=== PATIENT | female | born 1975 | race Hispanic/Latino ===

== ENCOUNTER 2018-09-05 21:35 | Emergency (ER) | payer SELFPAY ==
--- NOTE | 2018-09-05 22:20 | EDPHYS ---
Physician Documentation [facility] Name: Monica Juares Age: 43 yrs Sex: Female : 1975 Arrival Date: 09/05/2018 Time: 21:36 Bed 13 Private MD: ED Physician Derrick Berry HPI: 09/05 22:26 This 43 yrs old Female presents to ER via Ambulatory with complaints of KNOTS gs IN HEAD PAINFUL. 22:26 Description: The affected area is small, confluent. Onset: The symptoms/episode gs began/occurred 3 day(s) ago, and became persistent. Possible cause(s): unknown. Associated signs and symptoms: Pertinent negatives: drainage, erythema, fever, ear pain. Modifying factors: the symptoms are alleviated by nothing, the symptoms are aggravated by nothing. Severity of symptoms: At their worst the symptoms were moderate, in the emergency department the symptoms are unchanged. The patient has not experienced similar symptoms in the past. 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 - Social history:: Smoking status: Patient uses tobacco products, smokes one pack cigarettes per day. - Ebola Screening: : Patient denies travel to an Ebola-affected area in the 21 days before illness onset. ROS: 22:26 All other systems are negative. gs Exam: 22:26 Eyes: Pupils equal round and reactive to light, extra-ocular motions intact. Lids and gs lashes normal. Conjunctiva and sclera are non-icteric and not injected. Cornea within normal limits. Periorbital areas with no swelling, redness, or edema. ENT: Nares patent. No nasal discharge, no septal abnormalities noted. Tympanic membranes are normal and external auditory canals are clear. Oropharynx with no redness, swelling, or masses, exudates, or evidence of obstruction, uvula midline. Mucous membranes moist. Neck: Trachea midline, no thyromegaly or masses palpated, and no cervical lymphadenopathy. Supple, full range of motion without nuchal rigidity, or vertebral point tenderness. No Meningismus. Chest/axilla: Normal chest wall appearance and motion. Nontender with no deformity. No lesions are appreciated. Cardiovascular: Regular rate and rhythm with a normal S1 and S2. No gallops, murmurs, or rubs. Normal PMI, no JVD. No pulse deficits. Respiratory: Lungs have equal breath sounds bilaterally, clear to auscultation and percussion. No rales, rhonchi or wheezes noted. No increased work of breathing, no retractions or nasal flaring. Abdomen/GI: Soft, non-tender, with normal bowel sounds. No distension or tympany. No guarding or rebound. No evidence of tenderness throughout. Back: No spinal tenderness. No costovertebral tenderness. Full range of motion. Skin: Warm, dry with normal turgor. Normal color with no rashes, no lesions, and no evidence of cellulitis. MS/ Extremity: Pulses equal, no cyanosis. Neurovascular intact. Full, normal range of motion. Neuro: Awake and alert, GCS 15, oriented to person, place, time, and situation. Cranial nerves II-XII grossly intact. Motor strength 5/5 in all extremities. Sensory grossly intact. Cerebellar exam normal. Normal gait. 22:26 Constitutional: The patient appears alert, awake, uncomfortable. 22:26 Head/face: Noted is 2 occipital lymph nodes tender no erythema fluctuance or drainage. Vital Signs: 21:49 BP 154 / 90; Pulse 96; Resp 18; Temp 97.5; Pulse Ox 100% on R/A; Weight 57.15 kg (R); aj1 Height 5 ft. 0 in. (152.40 cm) (R); Pain 10/10; 21:49 Body Mass Index 24.61 (57.15 kg, 152.40 cm) aj1 MDM: 22:05 Patient medically screened. 22:26 Data reviewed: vital signs, nurses notes. Counseling: I had a detailed discussion with gs the patient and/or guardian regarding: the historical points, exam findings, and any diagnostic results supporting the discharge/admit diagnosis, the need for outpatient follow up. Administered Medications: 22:10 Drug: Ibuprofen 600 mg Route: PO; ao 22:30 Follow up: Response: No adverse reaction ao 22:30 Not Given (Patient Refused): Verdi 5 mg-325 mg 1 tabs PO once ao Disposition: 09/05/18 22:19 Discharged to Home. Impression: Acute lymphadenitis of face, head and neck. - Condition is Stable. - Discharge Instructions: Lymphadenopathy. - Prescriptions for Ibuprofen 600 mg Oral Tablet - take 1 tablet by ORAL route every 8 hours As needed take with food; 30 tablet. Keflex 500 mg Oral Capsule - take 1 capsule by ORAL route every 12 hours for 7 days; 14 capsule. - Medication Reconciliation Form, Thank You Letter, Antibiotic Education, Prescription Opioid Use form. - Follow up: Private Physician; When: 1 - 2 days; Reason: Re-evaluation by your physician. Signatures: Debibe Reid RN RN aj1 Tin Ojeda RN RN Derrick Smith MD MD gs Corrections: (The following items were deleted from the chart) 22:31 22:19 09/05/2018 22:19 Discharged to Home. Impression: Acute lymphadenitis of face, ao head and neck. Condition is Stable. Forms are Medication Reconciliation Form, Thank You Letter, Antibiotic Education, Prescription Opioid Use. Follow up: Private Physician; When: 1 - 2 days; Reason: Re-evaluation by your physician. gs
--- NOTE | 2018-09-05 22:20 | ER ---
Nurse's Notes [facility] Name: Monica Juares Age: 43 yrs Sex: Female : 1975 Arrival Date: 09/05/2018 Time: 21:36 Bed 13 Private MD: Diagnosis: Acute lymphadenitis of face, head and neck Presentation: 09/05 21:47 Presenting complaint: Patient states: "I got 2 knots on the back of my head, they hurt aj1 really bad." Denies getting hit in the head, denies fever. Transition of care: patient was not received from another setting of care. Onset of symptoms was September 05, 2018. Risk Assessment: Do you want to hurt yourself or someone else? Patient reports no desire to harm self or others. Initial Sepsis Screen: Does the patient meet any 2 criteria? HR > 90 bpm. No. Patient's initial sepsis screen is negative. Does the patient have a suspected source of infection? No. Patient's initial sepsis screen is negative. Care prior to arrival: None. 21:47 Method Of Arrival: Ambulatory aj 21:47 Acuity: [place] 4 aj1 Triage Assessment: 21:49 General: Appears in no apparent distress. uncomfortable, Behavior is calm, cooperative, aj1 appropriate for age. Pain: Complains of pain in scalp Pain currently is 10 out of 10 on a pain scale. Neuro: Level of Consciousness is awake, alert, obeys commands. Cardiovascular: Patient's skin is warm and dry. Respiratory: Airway is patent Respiratory effort is even, unlabored, Respiratory pattern is regular, symmetrical. 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 - Social history:: Smoking status: Patient uses tobacco products, smokes one pack cigarettes per day. - Ebola Screening: : Patient denies travel to an Ebola-affected area in the 21 days before illness onset. Screenin:30 Abuse screen: Denies threats or abuse. Denies injuries from another. ao 22:30 Nutritional screening: No deficits noted. Tuberculosis screening: No symptoms or risk ao factors identified. Fall Risk None identified. Vital Signs: 21:49 BP 154 / 90; Pulse 96; Resp 18; Temp 97.5; Pulse Ox 100% on R/A; Weight 57.15 kg (R); aj1 Height 5 ft. 0 in. (152.40 cm) (R); Pain 10/10; 21:49 Body Mass Index 24.61 (57.15 kg, 152.40 cm) aj1 ED Course: 21:36 Patient arrived in ED. es 21:48 Triage completed. aj1 21:49 Arm band placed on Patient placed in an exam room. aj1 21:51 Derrick Berry MD is Attending Physician. 22:07 Tin Ojeda, RN is Primary Nurse. ao 23:07 No provider procedures requiring assistance completed. Patient did not have IV access ao during this emergency room visit. 23:09 Patient has correct armband on for positive identification. Pulse ox on. NIBP on. ao Administered Medications: 22:10 Drug: Ibuprofen 600 mg Route: PO; ao 22:30 Follow up: Response: No adverse reaction ao 22:30 Not Given (Patient Refused): Knox 5 mg-325 mg 1 tabs PO once ao Outcome: 22:19 Discharge ordered by . gs 22:31 Patient left the ED. ao 23:08 Discharged to home ambulatory. ao 23:08 Condition: stable 23:08 Discharge instructions given to patient, Instructed on discharge instructions, follow up and referral plans. Demonstrated understanding of instructions, follow-up care, Prescriptions given X 1. Signatures: Debbie Reid RN RN aj1 Ella Conrad Alex RN RN ao Derrick Berry MD MD
[2018-09-05] MEDS ORDERED: IBUPROFEN 200 MG TAB PO ONE (22:27)
[2018-09-05] MEDS ORDERED: IBUPROFEN 400 MG TAB ONE (22:27)
[2018-09-05] MEDS ORDERED: HYDROCODONE/APAP 5/325 MG TAB ONE (22:28)
[2018-09-06 01:07] VITALS: BP 154/90; TEMP 97.5; O2SAT 100
== END 2018-09-05 22:31 | disposition home or self-care (01) ==
LOC: ER 21:35
DX: L04.0 Acute lymphadenitis of face, head and neck (principal); E11.9 Type 2 diabetes mellitus without complications
CPT/HCPCS: 99283

== ENCOUNTER 2020-10-15 07:41 | Day surgery (SDC) | payer SELFPAY ==
[2020-10-15 08:23] LABS: Absolute Lymphocytes (CBC) 2.3 K/uL (0.7-4.9); Basophils % 0.7 % (0-1.3); Hematocrit 34.5 % (36.0-45.0); Lymphocytes % 17.5 % (15.3-44.8); MPV 7.8 fL (7.6-11.3); RBC Red Blood Cell Count 3.92 M/uL (3.86-4.86)
[2020-10-15 08:36] LABS: Potassium 4.1 mmol/L (3.5-5.1)
--- NOTE | 2020-10-15 08:44 | RAD REPORT ---
EXAM DESCRIPTION: RAD - Chest Pa And Lat (2 Views) - 10/15/2020 8:38 am CLINICAL HISTORY: STAT, SAME DAY SURGERY, RM 4, patient pending breast surgery COMPARISON: Portable December 2012 TECHNIQUE: Frontal and lateral views of the chest were obtained. FINDINGS: The lungs are clear. Heart size is normal and central vasculature is within normal limit s. No pleural effusion or pneumothorax seen. No acute bony finding noted. No aortic abnormality. IMPRESSION: No acute cardiopulmonary process. No significant change from comparison study.
[2020-10-15] MEDS ORDERED: CEFAZOLIN/SWI 1gm 1 GM/10 ML SYR ONE (08:54)
[2020-10-15] MEDS ORDERED: NA CHLORIDE 0.9% 1,000 ML ONE ×2 (08:54→10:49)
[2020-10-15] MEDS ORDERED: ACETAMINOPHEN 500 MG TAB ONE (09:30)
[2020-10-15] MEDS ORDERED: CELECOXIB 100 MG CAPSULE ONE (09:30)
[2020-10-15] MEDS ORDERED: LIDOCAINE 1% MPF 5 ML VIAL ONE (09:46)
[2020-10-15] MEDS ORDERED: dexAMETHasone 10 MG/ML VIAL ONE (09:46)
[2020-10-15] MEDS ORDERED: ONDANSETRON 4 MG/2 ML VIAL ONE (09:46)
[2020-10-15] MEDS ORDERED: MIDAZOLAM HCL 2 MG/2 ML INJ ONE (09:46)
[2020-10-15] MEDS ORDERED: KETOROLAC 30 MG/ML INJ ONE (09:46)
[2020-10-15] MEDS ORDERED: FENTANYL CITR 100 MCG/2 ML ONE (09:46)
--- NOTE | 2020-10-15 10:11 | P.BOP ---
Preoperative diagnosis: infected breast lump with abcess Postoperative diagnosis: sameq Primary procedure: Breast lumpectomy with abscess drainage Estimated blood loss: <10cc Specimen: pus and lump Anesthesia: General Drain(s): Other (iodoform) Transferred to: Recovery Room Condition: Good
--- NOTE | 2020-10-15 10:48 | DS ---
Diagnosis: Infected right breast mass with abscess. Procedure: Right breast lumpectomy with abscess drainage. Disposition: Home. Discharge Instructions: Activity as tolerated. No heavy lifting. Plan: Follow up in my office in 1 week. Call for appointment at [phone]. Wet-to-dry dressing, nor mal saline daily. STEPH/CAMMY Voice ID: [id number] Report ID: [id number]
--- NOTE | 2020-10-15 10:54 | OP ---
Date of Procedure: 10/15/2020 Surgeon: Varinder Gallo MD [employer] Dean: None. Preoperative Diagnoses: Right breast infected lump, mass. Postoperative Diagnosis: Right breast infected lump, mass. Procedure: Right breast lumpectomy with abscess drainage. Estimated Blood Loss: Less than 10 mL. Specimen: Lump and pus. Indication: This is the case of a 45-year-old patient, comes to us with a very tender lump on the [facility] breast region about 3 o'clock periareolar with erythema, fluctuance present, consistent with infe cted mass. The benefits, alternatives, and risks of excision of the mass and also a drainage of an a bscess fully explained to the patient, which include, but not limited to infection, bleeding, damage to adjacent structures, anesthesia complication, recurrence, [place] and even . She also understands this may not relieve any symptoms. She might need more than one surgical intervention. She underst ood, signed a consent. She understands this is not a substitute for mammogram. When this heals, she has to have a mammogram. We are going to send the specimen at this time for culture and also biopsy . Procedure In Detail: The patient was brought to the operating room. Anesthesia was done without com plication. A time-out was called. The area of the concern was marked by me and the patient previous ly. An incision was made in that area. We found an area of lump present with an associated abscess. Blood was removed. The abscess was drained. The area was irrigated. The patient's specimen sent to pathology for biopsy and the pus sent for culture. Hemostasis was obtained. Area was packed with iodoform packing. The patient tolerated the procedure well. The patient was sent to recovery in stable condition. Sponge count and instrument counts were correct. HM/MODL Voice ID: [id number] Report ID: [id number]
[2020-10-15] MEDS ORDERED: HYDROCODONE/APAP 5/325 MG TAB ONE (12:01)
[2020-10-15 13:44] VITALS: BP 107/68; TEMP 97.3; O2SAT 100
--- NOTE | 2020-10-17 08:02 | EKG ---
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
== END 2020-10-15 12:35 | disposition home or self-care (01) ==
LOC: OR 07:41
PROVIDERS: ATTEND Surgery
PROC: 0HBT0ZZ Excision of Right Breast, Open Approach (ICD-10-PCS; principal; 2020-10-15 09:30)
DX: N63.10 Unspecified lump in the right breast, unspecified quadrant (principal); N61.1 Abscess of the breast and nipple; Z20.822 Contact with and (suspected) exposure to COVID-19
CPT/HCPCS: 93005; 87070; 85025; 80048; 36415; 87205 ×2; 81025; 82947 ×2; 88305; 87075; 71046; 19120; U0003; J2250; J3010; J1100; J0690; J7030 ×2; J2405